=== PATIENT | female | born 1970 | race Two or more races ===

== ENCOUNTER 2021-01-20 17:01 | Emergency (ER) | payer BC ==
[~2021-01-20] VITALS: Ht 162.6 cm; Wt 71.7 kg
[2021-01-20 17:02] VITALS: BP 129/57
== END 2021-01-20 19:11 | disposition left against medical advice (07) ==
LOC: ER 17:01
DX: M79.672 Pain in left foot (principal); Z53.21 Procedure and treatment not carried out due to patient leaving prior to being seen by health care provider